=== PATIENT | female | born 1950 | race Hispanic/Latino ===

== ENCOUNTER 2025-01-16 21:41 | Inpatient (IN) | payer MEDICARE, OTHER ==
[~2025-01-16 21:41] MED LIST: Iopamidol 370 76% 100 ML VIAL ONE
[2025-01-17] MEDS ORDERED: Electrolyte Replacement Protocol FS SCH (01:25)
[2025-01-17] MEDS ORDERED: TIROFIBAN IVPB SCH (01:30)
[2025-01-17] MEDS ORDERED: Milk Of Magnesia 30 ML UDCUP PO PRN (01:30)
[2025-01-17] MEDS ORDERED: Mag-Al 1200 mg/1200 mg/30 ML UDCUP PO PRN (01:30)
[2025-01-17] MEDS ORDERED: Morphine 2 MG/ML VIAL SLOW IVP PRN (01:30)
[2025-01-17] MEDS ORDERED: Acetaminophen/Codeine 30-300mg Tablet PO PRN (01:30)
[2025-01-17] MEDS ORDERED: SODIUM CHLORIDE IVPB SCH (01:30)
[2025-01-17] MEDS ORDERED: Zolpidem Tartrate 5 MG TAB PO PRN (01:30)
[2025-01-17] MEDS ORDERED: Nitroglycerin 0.4 MG TAB (25 Tab Bottle) SL PRN (01:30)
[2025-01-17] MEDS ORDERED: Morphine 4 MG/ML VIAL SLOW IVP PRN (01:30)
[2025-01-17 01:38] VITALS: BMI 29.1
[2025-01-17] MEDS: Sodium Chloride 0.9% 1,000 ML IV SCH ×2 (02:04→13:58)
[2025-01-17 04:33] LABS: ALT (SGPT) 25 U/L (Less than 34); AST (SGOT) 86 U/L (11-34); Albumin 3.6 g/dL (3.1-4.5); Alkaline Phosphatase 103 U/L (40-110); Anion Gap 15 mmol/L (10-20); BUN (Urea Nitrogen) 18 mg/dL (9.8-20.1); Bilirubin, Total 0.5 mg/dL (0.3-1.2); Calc. Creatinine Clearance 77 mL/min (70-130); Calcium 8.7 mg/dL (7.8-10.44); Carbon Dioxide 17 mmol/L (23-31); Chloride 108 mmol/L (98-107); Estimated GFR 92; Globulin 3.6 g/dL (2.4-3.5); Glucose 194 mg/dL (83-110); Potassium 3.4 mmol/L (3.5-5.1); Protein, Total 7.2 g/dL (5.8-8.1); Sodium 137 mmol/L (136-145)
[2025-01-17 04:42] LABS: Troponin I 6.209 ng/mL (< 0.028)
[2025-01-17] MEDS: Potassium Chloride 20 MEQ in Premix 1 BAG IVPB SCH (06:22)
[2025-01-17 09:17] LABS: #Basophils Less than 0.03 10x3/uL (0.0-0.2); #Eosinophils Less than 0.03 10x3/uL (0.0-0.7); %Basophils 0.1 % (0.0-1.0); %Lymphocytes 8.1 % (21.0-51.0); %Monocytes 1.5 % (0.0-10.0); %Neutrophils 90.1 % (42.0-75.0); Hematocrit 33.4 % (36.0-47.0); Hemoglobin 11.2 g/dL (12.0-16.0); Mean Corpuscular HGB CONC 33.5 g/dL (32.0-36.0); Mean Corpuscular Hemoglobin 29.6 pg (27.0-31.0); Mean Corpuscular Volume 88.1 fL (78.0-98.0); Mean Platelet Volume 9.4 fL (7.4-10.4); Platelet Count 290 10x3/uL (130-400); RBC Distribution Width 12.6 % (11.5-14.5); Red Blood Cell (RBC) Count 3.79 mill/uL (4.20-5.40)
[2025-01-17 09:37] LABS: Cardiac Risk 3.5 (Less than 4.5)
[2025-01-17] MEDS: Potassium Chloride 20 MEQ TAB PO SCH (09:56)
[2025-01-17] MEDS: Carvedilol 3.125 MG TAB PO SCH (09:57)
[2025-01-17] MEDS: Famotidine/PF 20 mg/2ml Vial SLOW IVP SCH (09:57)
[2025-01-17 09:59] LABS: Troponin I 28.105 ng/mL (< 0.028)
[2025-01-17] MEDS: Atorvastatin Calcium 40 MG TAB PO SCH ×2 (11:18→21:13)
[2025-01-17] MEDS: Acetaminophen/Codeine 30-300mg Tablet PO PRN (11:18)
[2025-01-17 12:36] LABS: Hemoglobin A1c 5.5 % (4.0-6.0)
[2025-01-17] MEDS: Heparin 10,000 UNITS/ 10 ML VIAL SLOW IVP SCH (17:03)
[2025-01-17] MEDS: Heparin 25,000 units/D5W 500 ML IV SCH (17:04)
[2025-01-17] MEDS: Communication Order-Pharmacy FS ONE (18:13)
[2025-01-17 23:52] LABS: PTT 138.9 sec (22.9-36.1)
[2025-01-18] MEDS ORDERED: CEFAZOLIN 2 GM in Sodium Chloride 0.9% 100 ML IVPB SCH (00:01)
[2025-01-18] MEDS ORDERED: Dexamethasone 4 mg/ml Vial ONE (06:28)
[2025-01-18] MEDS ORDERED: Bupivacaine PF 0.5% 30 ML VIAL ONE (06:28)
[2025-01-18] MEDS ORDERED: EPINEPHrine 1 MG/ML VIAL ONE (06:28)
[2025-01-18] MEDS ORDERED: Heparin 5,000 UNITS/ML VIAL ONE (06:28)
[2025-01-18] MEDS ORDERED: Albumin 5% 500 ML ONE (06:29)
[2025-01-18] MEDS ORDERED: PHENYLEPHRINE-NS 100 MCG/ML 10 ML SYRINGE ONE ×2 (06:29→07:12)
[2025-01-18] MEDS ORDERED: Aminocaproic Acid 5 GM/20 ML VIAL ONE ×2 (06:41→07:32)
[2025-01-18] MEDS ORDERED: Norepinephrine 4 MG/4 ML VIAL ONE ×2 (06:41→07:32)
[2025-01-18] MEDS ORDERED: Heparin 10,000 UNITS/1 ML VIAL 30,000 UNITS in Sodium Chloride 0.9% 1,000 ML FS SCH (06:45)
[2025-01-18] MEDS ORDERED: PROPOFOL 20 ML ONE ×2 (07:08→12:33)
[2025-01-18] MEDS ORDERED: Rocuronium Bromide 10 MG/ML (10ML VIAL) ONE ×2 (07:09→09:10)
[2025-01-18] MEDS ORDERED: Lidocaine 1% PF 5 ML VIAL ONE (07:09)
[2025-01-18] MEDS ORDERED: Fentanyl 250 MCG/5 ML VIAL ONE (07:10)
[2025-01-18] MEDS ORDERED: Midazolam HCl 2 mg/2 ml Vial ONE ×3 (07:10→13:19)
[2025-01-18] MEDS ORDERED: Heparin 10,000 UNITS/ 10 ML VIAL ONE (07:11)
[2025-01-18] MEDS ORDERED: ePHEDrine Sulfate 50 MG/10 ML VIAL ONE (07:12)
[2025-01-18] MEDS ORDERED: Ondansetron ODT 4 MG TAB ONE (07:13)
[2025-01-18] MEDS ORDERED: EPINEPHrine 1 MG/ML AMP ONE (07:32)
[2025-01-18] MEDS ORDERED: Vancomycin 1 GM VIAL ONE (07:32)
[2025-01-18] MEDS ORDERED: Lidocaine 2% PF 100 mg/5 ml Syringe ONE (07:32)
[2025-01-18] MEDS ORDERED: Magnesium 5 GM/10 ML VIAL ONE (07:32)
[2025-01-18] MEDS ORDERED: Mannitol 12.5 GM/50 ML ONE (07:32)
[2025-01-18] MEDS ORDERED: Potassium Chloride 60 mEq (30 mL) VIAL ONE (07:32)
[2025-01-18] MEDS ORDERED: Papaverine 60 MG/2 ML VIAL ONE (07:32)
[2025-01-18] MEDS ORDERED: Heparin 30,000 units/30 ml VIAL ONE (07:32)
[2025-01-18] MEDS ORDERED: Cardioplegic Soln 1,000 ML BAG ONE (07:32)
[2025-01-18] MEDS ORDERED: Sodium Bicarb 50 mEq/50 ML VIAL ONE ×3 (07:32→12:55)
[2025-01-18] MEDS ORDERED: Calcium Chloride 1 GM/10 ML Abboject SYRINGE ONE (07:32)
[2025-01-18] MEDS ORDERED: Protamine Sulfate 250 MG/25 ML VIAL ONE (07:32)
[2025-01-18] MEDS ORDERED: Insulin Regular, Human 100 UNIT/ML 10 ML VIAL ONE (10:14)
[2025-01-18] MEDS ORDERED: fentaNYL 50 mcg/mL 1 mL Vial ONE (11:15)
[2025-01-18] MEDS ORDERED: fentaNYL 50 mcg/mL 1 mL Vial SLOW IVP PRN ×2 (13:21)
[2025-01-18] MEDS ORDERED: Mag-Al 1200 mg/1200 mg/30 ML UDCUP PO PRN (13:21)
[2025-01-18] MEDS ORDERED: Albumin 5% 12.5 GM (250 mL) BOT IVPB PRN (13:21)
[2025-01-18] MEDS ORDERED: NOREPINEPHRINE 8 MG/250 ML-D5W 250 ML IVPB PRN (13:21)
[2025-01-18] MEDS ORDERED: traMADol HCl 50 MG TAB PO PRN ×2 (13:21)
[2025-01-18] MEDS ORDERED: niCARdipine 25 MG in Sodium Chloride 0.9% 250 ML 250 ML IVPB PRN (13:21)
[2025-01-18] MEDS ORDERED: Promethazine HCl 25 MG/ML VIAL IM PRN (13:21)
[2025-01-18] MEDS ORDERED: Bisacodyl 5 MG TAB PO PRN (13:21)
[2025-01-18] MEDS ORDERED: Ondansetron PF 4 MG/2 ML Vial IVP PRN (13:21)
[2025-01-18] MEDS ORDERED: Morphine 2 MG/ML VIAL SLOW IVP PRN ×2 (13:21→18:45)
[2025-01-18] MEDS ORDERED: Nitroglycerin 50 MG/250 ML BOT 250 ML IVPB PRN (13:21)
[2025-01-18] MEDS ORDERED: Bisacodyl 10 MG SUPP PR PRN (13:21)
[2025-01-18] MEDS ORDERED: Guaifenesin DM 100-10/5 ML UDCUP PO PRN (13:21)
[2025-01-18] MEDS ORDERED: Phenylephrine 40 MG/NS 250 ML 250 ML IVPB PRN (13:21)
[2025-01-18] MEDS ORDERED: EPINEPHrine 4 MG in Dextrose 5% in Water 250 ML IV SCH (13:30)
[2025-01-18 14:02] LABS: Actual Bicarbonate (HCO3a) 22.1 mEq/L (22-28); Base Excess (BEa) -1.8 mEq/L (-2.0 to +3.0); CO2 Tension 35.5 mmHg (35.0-45.0); Calcium, Ionized (arterial) 0.94 mmol/L (1.12-1.30); Carboxyhemoglobin (COHb) 0.9 gm% (0.0-3.0); Hematocrit-ABG 49 % (36.0-47.0); Hemoglobin (Hb) 16.6 g/dL (12.0-16.0); O2 Tension (PaO2), arterial 62.9 mmHg (> 70.0); Potassium - ABG Lab 3.13 mmol/L (3.70-5.30); pH, Arterial 7.412 (7.35-7.45)
[2025-01-18 14:04] LABS: ALV-art Gradient 320.525 mmHg (0-20); Puncture Site Arterial Line
[2025-01-18] MEDS: Albumin 5% 12.5 GM (250 mL) BOT IVPB PRN (14:11)
[2025-01-18] MEDS ORDERED: Glucagon 1 MG/ML KIT SC PRN (14:30)
[2025-01-18] MEDS ORDERED: Dextrose 5% in Water 1,000 ML IV PRN (14:30)
[2025-01-18] MEDS ORDERED: Dextrose 50% Abboject 50 ML SYRINGE SLOW IVP PRN (14:30)
[2025-01-18] MEDS: INSULIN REGULAR IN 0.9 % NACL 100 UNITS in Premix 1 BAG IVPB SCH (14:42)
[2025-01-18] MEDS: Magnesium 2 GM/50 ML(in water) 2 GM in Premix 1 BAG IVPB SCH (14:42)
[2025-01-18] MEDS ORDERED: Electrolyte Replacement Protocol 1 EACH FS PRN (14:45)
[2025-01-18] MEDS: CEFAZOLIN 2 GM in Sodium Chloride 0.9% 100 ML IVPB SCH (14:52)
[2025-01-18 14:55] LABS: INR-International Normal Ratio 1.8; PTT 32.7 sec (22.9-36.1); Prothrombin Time 21.3 sec (12.0-14.7)
[2025-01-18] MEDS: NS 0.9% w/ 20 MEQ KCL 1,000 ML IV SCH (14:57)
[2025-01-18] MEDS: Albumin 5% 500 ML ONE (14:58)
[2025-01-18] MEDS: Ipratropium/Albuterol 3 ML NEB NEB SCH (15:14)
[2025-01-18 15:28] LABS: Band 15 % (5-11); Burr Cells MODERATE= 6-15 cells HPF (0-1); Lymphocytes 8 % (21-51); Monocytes 4 % (0-10); Neutrophil 73 % (42-75); Platelet Adequacy Comment Platelets Decreased; Poikilocytosis SLIGHT = 6-15 cells HPF (0-5); Polychromasia SLIGHT = 2-3 cells HPF (0-2)
[2025-01-18 15:37] LABS: Hemoglobin 15.7 g/dL (12.0-16.0); Mean Corpuscular HGB CONC 34.1 g/dL (32.0-36.0); Mean Corpuscular Hemoglobin 28.9 pg (27.0-31.0); Mean Corpuscular Volume 84.7 fL (78.0-98.0); Mean Platelet Volume 9.7 fL (7.4-10.4); Platelet Count 101 10x3/uL (130-400); RBC Distribution Width 14.3 % (11.5-14.5); Red Blood Cell (RBC) Count 5.43 mill/uL (4.20-5.40)
[2025-01-18 16:06] LABS: Hematocrit 40.8 % (36.0-47.0); Hemoglobin 14.2 g/dL (12.0-16.0)
[2025-01-18 16:40] LABS: Anion Gap 18 mmol/L (10-20); BUN (Urea Nitrogen) 8 mg/dL (9.8-20.1); Calc. Creatinine Clearance 86 mL/min (70-130); Calcium 6.2 mg/dL (7.8-10.44); Carbon Dioxide 19 mmol/L (23-31); Chloride 118 mmol/L (98-107); Estimated GFR 95; Glucose 158 mg/dL (83-110); Potassium 2.6 mmol/L (3.5-5.1); Sodium 152 mmol/L (136-145)
[2025-01-18] MEDS: Post-Op Insulin Drip Protocol IVPB ONE (17:00)
[2025-01-18] MEDS: Potassium Chloride 20 MEQ in Premix 1 BAG IVPB SCH (17:01)
[2025-01-18 17:51] LABS: Sodium 150 mmol/L (136-145)
[2025-01-18 17:52] LABS: Magnesium 2.1 mg/dL (1.6-2.6)
[2025-01-18 18:12] LABS: Phosphorus 0.6 mg/dL (2.5-4.5)
[2025-01-18] MEDS ORDERED: Propofol 1,000 MG/100 ML VIAL IV PRN (18:45)
[2025-01-18] MEDS ORDERED: Propofol BOLUS 1,000 MG/100 ML VIAL IV PRN (18:45)
[2025-01-18] MEDS ORDERED: Fentanyl BOLUS 250 ML IVPB PRN (18:45)
[2025-01-18] MEDS ORDERED: DISCONTINUE PREVIOUS NARCOTIC PAIN MEDICATIONS AND BENZODIAZEPINES FS SCH (18:45)
[2025-01-18] MEDS ORDERED: Ipratropium/Albuterol 3 ML NEB NEB SCH (19:00)
[2025-01-18] MEDS: Fentanyl CADD 100 ML IV SCH (19:02)
[2025-01-18] MEDS: Potassium Phosphate 30 MMOL in Sodium Chloride 0.9% 250 ML 250 ML IVPB SCH (20:25)
[2025-01-18] MEDS: Famotidine/PF 20 mg/2ml Vial SLOW IVP SCH (20:25)
[2025-01-18] MEDS: CALCIUM GLUC 1 GM/NS 50 ML 1 GM in Premix 1 BAG IVPB SCH (20:25)
[2025-01-19 00:58] LABS: Potassium 4.2 mmol/L (3.5-5.1)
[2025-01-19 03:04] LABS: #Basophils Less than 0.03 10x3/uL (0.0-0.2); #Eosinophils Less than 0.03 10x3/uL (0.0-0.7); %Basophils 0.1 % (0.0-1.0); %Lymphocytes 12.9 % (21.0-51.0); %Monocytes 7.9 % (0.0-10.0); %Neutrophils 78.4 % (42.0-75.0); Hematocrit 33.5 % (36.0-47.0); Hemoglobin 11.5 g/dL (12.0-16.0); Mean Corpuscular HGB CONC 34.3 g/dL (32.0-36.0); Mean Corpuscular Hemoglobin 29.3 pg (27.0-31.0); Mean Corpuscular Volume 85.5 fL (78.0-98.0); Mean Platelet Volume 10.7 fL (7.4-10.4); Platelet Count 99 10x3/uL (130-400); RBC Distribution Width 15.5 % (11.5-14.5); Red Blood Cell (RBC) Count 3.92 mill/uL (4.20-5.40)
[2025-01-19 03:16] LABS: INR-International Normal Ratio 1.4; Prothrombin Time 16.8 sec (12.0-14.7)
[2025-01-19 03:28] LABS: Anion Gap 12 mmol/L (10-20); BUN (Urea Nitrogen) 10 mg/dL (9.8-20.1); Calc. Creatinine Clearance 78 mL/min (70-130); Calcium 6.6 mg/dL (7.8-10.44); Carbon Dioxide 24 mmol/L (23-31); Chloride 121 mmol/L (98-107); Estimated GFR 93; Glucose 106 mg/dL (83-110); Magnesium 2.3 mg/dL (1.6-2.6); Potassium 3.6 mmol/L (3.5-5.1); Sodium 153 mmol/L (136-145)
[2025-01-19 03:34] LABS: Phosphorus 4.4 mg/dL (2.5-4.5)
[2025-01-19 04:21] LABS: Bilirubin, Direct 0.3 mg/dL (0.1-0.3); Bilirubin, Total 0.7 mg/dL (0.3-1.2)
[2025-01-19 04:22] LABS: ALT (SGPT) 106 U/L (Less than 34); AST (SGOT) 160 U/L (11-34); Albumin 2.9 g/dL (3.1-4.5); Alkaline Phosphatase 40 U/L (40-110); Protein, Total 4.2 g/dL (5.8-8.1)
[2025-01-19] MEDS: Calcium Chloride 1 GM/10 ML Abboject SYRINGE IVP SCH (04:27)
[2025-01-19] MEDS: 1/2 NS w/Potassium 20 mEq 1,000 ML IV SCH (04:27)
[2025-01-19] MEDS: Lorazepam 2 MG/ML VIAL SLOW IVP PRN (04:41)
[2025-01-19 07:41] LABS: Actual Bicarbonate (HCO3a) 20.8 mEq/L (22-28); CO2 Tension 32.9 mmHg (35.0-45.0); Carboxyhemoglobin (COHb) 0.7 gm% (0.0-3.0); Hematocrit-ABG 34 % (36.0-47.0); Hemoglobin (Hb) 11.6 g/dL (12.0-16.0); O2 Tension (PaO2), arterial 74.6 mmHg (> 70.0); Potassium - ABG Lab 3.59 mmol/L (3.70-5.30); pH, Arterial 7.418 (7.35-7.45)
[2025-01-19 08:01] LABS: ALV-art Gradient 98.175 mmHg (0-20); Puncture Site Arterial Line
[2025-01-19] MEDS: Magnesium 2 GM/50 ML(in water) 2 GM in Premix 1 BAG IVPB SCH (09:13)
[2025-01-19] MEDS: Heparin 5,000 UNITS/ML VIAL SC SCH (09:30)
[2025-01-19] MEDS: Carvedilol 3.125 MG TAB PO SCH (09:59)
[2025-01-19] MEDS: Lisinopril 10 MG TAB PO SCH (09:59)
[2025-01-19] MEDS: Aspirin Chewable 81 MG TAB PO SCH (09:59)
[2025-01-19] MEDS: DC Sedation Protocol FS ONE (12:24)
[2025-01-19 12:38] LABS: Anion Gap 11 mmol/L (10-20); BUN (Urea Nitrogen) 11 mg/dL (9.8-20.1); Calc. Creatinine Clearance 83 mL/min (70-130); Calcium 7.6 mg/dL (7.8-10.44); Carbon Dioxide 21 mmol/L (23-31); Chloride 120 mmol/L (98-107); Estimated GFR 94; Glucose 139 mg/dL (83-110); Potassium 3.4 mmol/L (3.5-5.1); Sodium 149 mmol/L (136-145)
[2025-01-19] MEDS ORDERED: Insulin Glargine 30 UNITS/0.3 ML VIAL SC PRN (14:22)
[2025-01-19] MEDS: Potassium Chloride 20 MEQ TAB PO SCH (15:30)
[2025-01-19] MEDS: Acetaminophen 325 MG TAB PO PRN (19:05)
[2025-01-19] MEDS: Potassium Chloride 20 MEQ in Premix 1 BAG IVPB SCH (20:26)
[2025-01-19] MEDS: Lidocaine 4% Patch TD SCH (22:17)
[2025-01-19] MEDS: Ketorolac Tromethamine 30 MG (1 mL) VIAL IVP SCH (22:35)
[2025-01-19] MEDS: Dexmedetomidine In 0.9 % NaCl 100 ML IVPB SCH (23:56)
[2025-01-20] MEDS: Albumin 25% 25 GM (100 mL) BOT IVPB SCH (04:24)
[2025-01-20 05:12] LABS: Anion Gap 11 mmol/L (10-20); BUN (Urea Nitrogen) 13 mg/dL (9.8-20.1); Calc. Creatinine Clearance 79 mL/min (70-130); Calcium 7.5 mg/dL (7.8-10.44); Carbon Dioxide 22 mmol/L (23-31); Chloride 117 mmol/L (98-107); Estimated GFR 93; Glucose 129 mg/dL (83-110); Magnesium 2.4 mg/dL (1.6-2.6); Potassium 3.9 mmol/L (3.5-5.1); Sodium 146 mmol/L (136-145)
[2025-01-20 05:59] LABS: #Basophils Less than 0.03 10x3/uL (0.0-0.2); #Eosinophils Less than 0.03 10x3/uL (0.0-0.7); %Basophils 0.1 % (0.0-1.0); %Lymphocytes 18.8 % (21.0-51.0); %Monocytes 6.7 % (0.0-10.0); %Neutrophils 74.1 % (42.0-75.0); Hematocrit 22.3 % (36.0-47.0); Hemoglobin 7.6 g/dL (12.0-16.0); Mean Corpuscular HGB CONC 34.1 g/dL (32.0-36.0); Mean Corpuscular Hemoglobin 29.5 pg (27.0-31.0); Mean Corpuscular Volume 86.4 fL (78.0-98.0); Mean Platelet Volume 10.6 fL (7.4-10.4); Platelet Count 86 10x3/uL (130-400); RBC Distribution Width 15.6 % (11.5-14.5); Red Blood Cell (RBC) Count 2.58 mill/uL (4.20-5.40)
[2025-01-20 06:17] LABS: Phosphorus 2.5 mg/dL (2.5-4.5)
[2025-01-20 07:05] LABS: Hematocrit 21.6 % (36.0-47.0); Hemoglobin 7.2 g/dL (12.0-16.0); Mean Corpuscular HGB CONC 33.3 g/dL (32.0-36.0); Mean Corpuscular Hemoglobin 29.6 pg (27.0-31.0); Mean Corpuscular Volume 88.9 fL (78.0-98.0); Mean Platelet Volume 10.4 fL (7.4-10.4); Platelet Count 80 10x3/uL (130-400); RBC Distribution Width 15.7 % (11.5-14.5); Red Blood Cell (RBC) Count 2.43 mill/uL (4.20-5.40)
[2025-01-20 07:50] LABS: INR-International Normal Ratio 1.3; Prothrombin Time 16.7 sec (12.0-14.7)
[2025-01-20 07:51] LABS: PTT 45.8 sec (22.9-36.1)
[2025-01-20] MEDS: Calcium Chloride 13.6 MEQ in Sodium Chloride 0.9% 100 ML IVPB SCH (08:14)
[2025-01-20] MEDS: Sodium Chloride 0.9% 500 ML IV SCH (08:14)
[2025-01-20] MEDS ORDERED: Heparin 5,000 UNITS/ML VIAL SC SCH (09:00)
[2025-01-20] MEDS: Senokot S 8.6-50 MG TAB PO SCH (09:09)
[2025-01-20] MEDS: Transdermal Patch Removal TOP SCH (10:08)
[2025-01-20] MEDS: Haloperidol Lactate 5 MG/ML VIAL IM SCH (10:08)
[2025-01-20] MEDS: Morphine 2 MG/ML VIAL SLOW IVP SCH (11:00)
[2025-01-20 12:33] LABS: Hematocrit 32.7 % (36.0-47.0); Mean Corpuscular HGB CONC 33.6 g/dL (32.0-36.0); Mean Corpuscular Hemoglobin 28.9 pg (27.0-31.0); Mean Corpuscular Volume 86.1 fL (78.0-98.0); Platelet Count 87 10x3/uL (130-400); RBC Distribution Width 15.4 % (11.5-14.5)
[2025-01-20 12:47] LABS: Anion Gap 10 mmol/L (10-20); BUN (Urea Nitrogen) 16 mg/dL (9.8-20.1); Calc. Creatinine Clearance 95 mL/min (70-130); Calcium 8.4 mg/dL (7.8-10.44); Carbon Dioxide 22 mmol/L (23-31); Chloride 117 mmol/L (98-107); Estimated GFR 96; Glucose 124 mg/dL (83-110); Sodium 145 mmol/L (136-145)
[2025-01-20] MEDS: Lisinopril 10 MG TAB PO SCH (13:27)
[2025-01-20 15:06] LABS: #Basophils Less than 0.03 10x3/uL (0.0-0.2); #Eosinophils Less than 0.03 10x3/uL (0.0-0.7); %Basophils 0.2 % (0.0-1.0); %Eosinophils 0.1 % (0.0-10.0); %Lymphocytes 16.2 % (21.0-51.0); %Neutrophils 77.9 % (42.0-75.0); Hematocrit 32.2 % (36.0-47.0); Hemoglobin 11.2 g/dL (12.0-16.0); Mean Corpuscular HGB CONC 34.8 g/dL (32.0-36.0); Mean Corpuscular Hemoglobin 29.8 pg (27.0-31.0); Mean Corpuscular Volume 85.6 fL (78.0-98.0); Mean Platelet Volume 9.7 fL (7.4-10.4); Platelet Count 130 10x3/uL (130-400); RBC Distribution Width 15.5 % (11.5-14.5); Red Blood Cell (RBC) Count 3.76 mill/uL (4.20-5.40)
[2025-01-20 15:56] VITALS: BMI 29.8
[2025-01-20] MEDS: Haloperidol Lactate 5 MG/ML VIAL IM PRN (21:40)
[2025-01-21 06:56] LABS: #Basophils Less than 0.03 10x3/uL (0.0-0.2); %Basophils 0.2 % (0.0-1.0); %Eosinophils 0.3 % (0.0-10.0); %Lymphocytes 13.2 % (21.0-51.0); %Monocytes 5.9 % (0.0-10.0); %Neutrophils 79.6 % (42.0-75.0); Hemoglobin 12.2 g/dL (12.0-16.0); Mean Corpuscular HGB CONC 33.9 g/dL (32.0-36.0); Mean Corpuscular Hemoglobin 29.3 pg (27.0-31.0); Mean Corpuscular Volume 86.5 fL (78.0-98.0); Mean Platelet Volume 10.3 fL (7.4-10.4); Platelet Count 165 10x3/uL (130-400); RBC Distribution Width 16.1 % (11.5-14.5); Red Blood Cell (RBC) Count 4.16 mill/uL (4.20-5.40)
[2025-01-21 07:07] LABS: Phosphorus 2.5 mg/dL (2.5-4.5)
[2025-01-21 07:08] LABS: Anion Gap 14 mmol/L (10-20); BUN (Urea Nitrogen) 16 mg/dL (9.8-20.1); Calc. Creatinine Clearance 106 mL/min (70-130); Calcium 8.2 mg/dL (7.8-10.44); Carbon Dioxide 20 mmol/L (23-31); Chloride 113 mmol/L (98-107); Estimated GFR 99; Glucose 94 mg/dL (83-110); Magnesium 2.5 mg/dL (1.6-2.6); Potassium 3.7 mmol/L (3.5-5.1); Sodium 143 mmol/L (136-145)
[2025-01-21] MEDS ORDERED: Heparin 5,000 UNITS/ML VIAL SC SCH (09:00)
[2025-01-21] MEDS: Furosemide 20 MG (2 mL) VIAL SLOW IVP SCH (09:32)
[2025-01-22] MEDS: diphenhydrAMINE 50 MG/ML VIAL IVP SCH (01:21)
[2025-01-22 05:22] LABS: #Basophils 0.03 10x3/uL (0.0-0.2); %Basophils 0.3 % (0.0-1.0); %Eosinophils 1.4 % (0.0-10.0); %Lymphocytes 20.7 % (21.0-51.0); %Monocytes 8.8 % (0.0-10.0); %Neutrophils 67.3 % (42.0-75.0); Hematocrit 33.4 % (36.0-47.0); Hemoglobin 11.7 g/dL (12.0-16.0); Mean Corpuscular Hemoglobin 29.4 pg (27.0-31.0); Mean Corpuscular Volume 83.9 fL (78.0-98.0); Mean Platelet Volume 10.4 fL (7.4-10.4); Platelet Count 187 10x3/uL (130-400); RBC Distribution Width 15.7 % (11.5-14.5); Red Blood Cell (RBC) Count 3.98 mill/uL (4.20-5.40)
[2025-01-22 05:57] LABS: Anion Gap 11 mmol/L (10-20); BUN (Urea Nitrogen) 19 mg/dL (9.8-20.1); Calc. Creatinine Clearance 85 mL/min (70-130); Calcium 8.2 mg/dL (7.8-10.44); Carbon Dioxide 24 mmol/L (23-31); Chloride 109 mmol/L (98-107); Estimated GFR 93; Glucose 106 mg/dL (83-110); Sodium 141 mmol/L (136-145)
[2025-01-22] MEDS: Enoxaparin 40 MG (0.4 mL) SYRINGE SC SCH (08:38)
[2025-01-22] MEDS: Furosemide 20 MG TAB PO SCH (08:40)
[2025-01-22] MEDS: Potassium Chloride 20 MEQ TAB PO SCH ×2 (08:40→15:07)
[2025-01-22 12:43] LABS: Potassium 3.4 mmol/L (3.5-5.1)
[2025-01-22 12:45] LABS: Phosphorus 2.4 mg/dL (2.5-4.5)
[2025-01-22 14:26] LABS: Potassium 3.3 mmol/L (3.5-5.1)
[2025-01-22] MEDS: Magnesium 2 GM/50 ML(in water) 2 GM in Premix 1 BAG IVPB SCH (15:07)
[2025-01-22 18:54] LABS: Potassium 3.7 mmol/L (3.5-5.1)
[2025-01-22] MEDS: Temazepam 15 MG CAP PO PRN (20:37)
[2025-01-23 01:17] LABS: Potassium 3.2 mmol/L (3.5-5.1)
[2025-01-23] MEDS: Potassium Chloride 20 MEQ (100 mL) BAG IVPB PRN (02:12)
[2025-01-23 03:18] LABS: #Basophils Less than 0.03 10x3/uL (0.0-0.2); %Basophils 0.2 % (0.0-1.0); %Eosinophils 2.3 % (0.0-10.0); %Lymphocytes 17.7 % (21.0-51.0); %Neutrophils 68.9 % (42.0-75.0); Hematocrit 34.7 % (36.0-47.0); Hemoglobin 11.6 g/dL (12.0-16.0); Mean Corpuscular HGB CONC 33.4 g/dL (32.0-36.0); Mean Corpuscular Hemoglobin 29.4 pg (27.0-31.0); Mean Corpuscular Volume 87.8 fL (78.0-98.0); Mean Platelet Volume 9.7 fL (7.4-10.4); Platelet Count 204 10x3/uL (130-400); Red Blood Cell (RBC) Count 3.95 mill/uL (4.20-5.40)
[2025-01-23 04:00] LABS: Anion Gap 14 mmol/L (10-20); BUN (Urea Nitrogen) 14 mg/dL (9.8-20.1); Calc. Creatinine Clearance 92 mL/min (70-130); Calcium 8.4 mg/dL (7.8-10.44); Carbon Dioxide 24 mmol/L (23-31); Chloride 110 mmol/L (98-107); Estimated GFR 95; Glucose 109 mg/dL (83-110); Potassium 4.1 mmol/L (3.5-5.1); Sodium 144 mmol/L (136-145)
[2025-01-23] MEDS: hydrALAZINE 20 MG/ML VIAL SLOW IVP PRN (04:32)
[2025-01-23] MEDS: Amiodarone 150 MG, Admixture Fee 1 EACH in Dextrose 5% in Water 100 ML IVPB SCH (07:16)
[2025-01-23 07:25] LABS: Phosphorus 2.7 mg/dL (2.5-4.5)
[2025-01-23 07:27] LABS: Anion Gap 13 mmol/L (10-20); BUN (Urea Nitrogen) 13 mg/dL (9.8-20.1); Calc. Creatinine Clearance 100 mL/min (70-130); Calcium 8.6 mg/dL (7.8-10.44); Carbon Dioxide 24 mmol/L (23-31); Chloride 110 mmol/L (98-107); Estimated GFR 97; Glucose 134 mg/dL (83-110); Magnesium 1.9 mg/dL (1.6-2.6); Potassium 3.3 mmol/L (3.5-5.1); Sodium 144 mmol/L (136-145)
[2025-01-23] MEDS: Amiodarone 450 MG, Admixture Fee 1 EACH in Dextrose 5% in Water 250 ML IVPB SCH (07:33)
[2025-01-23] MEDS: Magnesium 2 GM/50 ML(in water) 2 GM in Premix 1 BAG IVPB SCH (08:21)
[2025-01-23] MEDS: Potassium Bicarbonate/Cit Ac 20 MEQ TAB PO SCH (08:31)
[2025-01-23] MEDS: Carvedilol 6.25 MG TAB PO SCH (08:32)
[2025-01-23 13:33] LABS: Phosphorus 3.1 mg/dL (2.5-4.5)
[2025-01-23 13:46] LABS: Anion Gap 13 mmol/L (10-20); BUN (Urea Nitrogen) 17 mg/dL (9.8-20.1); Calc. Creatinine Clearance 90 mL/min (70-130); Calcium 8.6 mg/dL (7.8-10.44); Carbon Dioxide 24 mmol/L (23-31); Chloride 109 mmol/L (98-107); Estimated GFR 95; Glucose 187 mg/dL (83-110); Magnesium 2.6 mg/dL (1.6-2.6); Potassium 5.1 mmol/L (3.5-5.1); Sodium 141 mmol/L (136-145)
[2025-01-23] MEDS: Famotidine 20 MG TAB PO SCH (20:08)
[2025-01-24 03:56] LABS: #Basophils 0.03 10x3/uL (0.0-0.2); %Basophils 0.2 % (0.0-1.0); %Lymphocytes 14.2 % (21.0-51.0); %Monocytes 8.4 % (0.0-10.0); %Neutrophils 72.8 % (42.0-75.0); Hematocrit 37.5 % (36.0-47.0); Hemoglobin 12.4 g/dL (12.0-16.0); Mean Corpuscular HGB CONC 33.1 g/dL (32.0-36.0); Mean Corpuscular Hemoglobin 29.2 pg (27.0-31.0); Mean Corpuscular Volume 88.2 fL (78.0-98.0); Mean Platelet Volume 10.1 fL (7.4-10.4); Platelet Count 258 10x3/uL (130-400); RBC Distribution Width 16.4 % (11.5-14.5); Red Blood Cell (RBC) Count 4.25 mill/uL (4.20-5.40)
[2025-01-24 04:30] LABS: Anion Gap 14 mmol/L (10-20); BUN (Urea Nitrogen) 15 mg/dL (9.8-20.1); Calc. Creatinine Clearance 96 mL/min (70-130); Calcium 8.9 mg/dL (7.8-10.44); Carbon Dioxide 21 mmol/L (23-31); Chloride 112 mmol/L (98-107); Estimated GFR 96; Glucose 125 mg/dL (83-110); Potassium 3.9 mmol/L (3.5-5.1); Sodium 143 mmol/L (136-145)
[2025-01-24] MEDS: Potassium Chloride 10 MEQ TAB PO SCH (08:42)
[2025-01-24] MEDS: Ezetimibe 10 MG TAB PO SCH (08:42)
[2025-01-24] MEDS: Amlodipine 10 MG TAB PO SCH (08:42)
[2025-01-24] MEDS: Amiodarone 200 MG TAB PO SCH (08:42)
[2025-01-24] MEDS: Insulin Regular, Human 100 UNIT/ML 10 ML VIAL SC PRN (12:19)
[2025-01-25 03:50] LABS: #Basophils 0.03 10x3/uL (0.0-0.2); %Basophils 0.2 % (0.0-1.0); %Eosinophils 1.4 % (0.0-10.0); %Lymphocytes 13.5 % (21.0-51.0); %Monocytes 8.4 % (0.0-10.0); %Neutrophils 75.2 % (42.0-75.0); Hematocrit 36.8 % (36.0-47.0); Mean Corpuscular HGB CONC 32.6 g/dL (32.0-36.0); Mean Corpuscular Hemoglobin 28.9 pg (27.0-31.0); Mean Corpuscular Volume 88.7 fL (78.0-98.0); Mean Platelet Volume 9.8 fL (7.4-10.4); Platelet Count 271 10x3/uL (130-400); RBC Distribution Width 16.2 % (11.5-14.5); Red Blood Cell (RBC) Count 4.15 mill/uL (4.20-5.40)
[2025-01-25 04:14] LABS: Anion Gap 16 mmol/L (10-20); BUN (Urea Nitrogen) 17 mg/dL (9.8-20.1); Calc. Creatinine Clearance 89 mL/min (70-130); Calcium 8.7 mg/dL (7.8-10.44); Carbon Dioxide 21 mmol/L (23-31); Chloride 110 mmol/L (98-107); Estimated GFR 95; Glucose 105 mg/dL (83-110); Potassium 3.8 mmol/L (3.5-5.1); Sodium 143 mmol/L (136-145)
[2025-01-25 18:07] VITALS: BP 163/82; TEMP 97.7
== END 2025-01-25 20:05 | DRG 233 ==
LOC: CCL 21:41 → CCU 22:31 → PCU 01-23 22:23
PROVIDERS: ADMIT Internal Medicine Cardiovascular Disease; ATTEND Internal Medicine Cardiovascular Disease
PROC: 4A023N7 Measurement of Cardiac Sampling and Pressure, Left Heart, Percutaneous Approach (ICD-10-PCS; 2025-01-17)
PROC: B2111ZZ Fluoroscopy of Multiple Coronary Arteries using Low Osmolar Contrast (ICD-10-PCS; 2025-01-17)
PROC: 30233N1 Transfusion of Nonautologous Red Blood Cells into Peripheral Vein, Percutaneous Approach (ICD-10-PCS; principal; 2025-01-18)
PROC: 02100Z9 Bypass Coronary Artery, One Artery from Left Internal Mammary, Open Approach (ICD-10-PCS; 2025-01-18)
PROC: 02110AW Bypass Coronary Artery, Two Arteries from Aorta with Autologous Arterial Tissue, Open Approach (ICD-10-PCS; 2025-01-18)
PROC: 06BQ4ZZ Excision of Left Saphenous Vein, Percutaneous Endoscopic Approach (ICD-10-PCS; 2025-01-18)
PROC: 5A1221Z Performance of Cardiac Output, Continuous (ICD-10-PCS; 2025-01-18)
PROC: 02L70ZK Occlusion of Left Atrial Appendage, Open Approach (ICD-10-PCS; 2025-01-18)
PROC: 4A033R1 Measurement of Arterial Saturation, Peripheral, Percutaneous Approach (ICD-10-PCS; 2025-01-18)
PROC: 30233R1 Transfusion of Nonautologous Platelets into Peripheral Vein, Percutaneous Approach (ICD-10-PCS; 2025-01-20)
DX: I21.19 ST elevation (STEMI) myocardial infarction involving other coronary artery of inferior wall (principal); J96.01 Acute respiratory failure with hypoxia; E87.0 Hyperosmolality and hypernatremia; G93.49 Other encephalopathy; I10 Essential (primary) hypertension; E78.00 Pure hypercholesterolemia, unspecified; I25.110 Atherosclerotic heart disease of native coronary artery with unstable angina pectoris; E78.5 Hyperlipidemia, unspecified; E87.5 Hyperkalemia; E87.6 Hypokalemia; E11.9 Type 2 diabetes mellitus without complications; I48.91 Unspecified atrial fibrillation; Z88.5 Allergy status to narcotic agent; Z85.43 Personal history of malignant neoplasm of ovary; Z90.710 Acquired absence of both cervix and uterus; Z90.89 Acquired absence of other organs; Z88.8 Allergy status to other drugs, medicaments and biological substances; Z91.041 Radiographic dye allergy status
CPT/HCPCS: 36415; 36416; 36430; 71045; 80048; 80053; 80061; 80076; 82805; 83036; 83735; 84100; 84484; 85025; 85347; 85610; 85730; 86850; 86900; 86901; 92941; 93005; 93010; 93306; 93458; 93459; 93798; 94002; 94640; 94760; 96374; A4311; A4648; C1725; C1751; C1769; C1776; C1887; C1889; C1894; J0171; J0282; J0360; J0613; J0665; J1100; J1200; J1630; J1642; J1644; J1650; J1815; J1885; J1940; J2003; J2060; J2150; J2250; J2272; J2440; J2704; J2720; J3010; J3370; J3475; J3480; J3490; J7030; J7050; J7070; J7620; P9016; P9035; P9045; P9047; Q0162; Q9967; S0017